=== PATIENT | female | born 1935 | race Caucasian/White ===

== ENCOUNTER 2017-05-22 12:20 | Emergency (ER) | payer MEDICARE, OTHER ==
[2017-05-22] MEDS: ONDANSETRON PF 4 MG/2 ML VIAL. IV (12:59)
[2017-05-22] MEDS: fentaNYL PF VIAL 100 MCG/2 ML VIAL IV (13:01)
[2017-05-22 13:03] LABS: BASO % 0 % (0-3); EOS % 0 % (0-3); HEMATOCRIT 39.9 % (36.0-47.0); HEMOGLOBIN 12.8 g/dL (12.0-15.5); LYMPH # 0.6 x10^3/uL (1.0-4.8); LYMPH % 7 % (24-48); MEAN CORPUSCULAR HEMOGLOBIN 26 pg (25-35); MEAN CORPUSCULAR HGB CONC 32 g/dL (31-37); MEAN CORPUSCULAR VOLUME 82 fL (79-100); MONO # 0.3 x10^3/uL (0.0-1.1); MONO % 4 % (0-9); NEUT # 8.1 x10^3uL (1.8-7.7); NEUT % 89 % (31-73); PLATELET COUNT 323 x10^3/uL (140-400); RED BLOOD COUNT 4.84 x10^6/uL (3.50-5.40); RED CELL DISTRIBUTION WIDTH 17.9 % (11.5-14.5); WHITE BLOOD COUNT 9.1 x10^3/uL (4.0-11.0)
[2017-05-22 13:04] LABS: ADD MAN DIFF? YES
[2017-05-22 13:49] LABS: % BANDS 2 % (0-9); % LYMPHS 4 % (24-48); % MONOS 1 % (0-10); % SEGS 93 % (35-66)
[2017-05-22 13:50] LABS: PLT ESTIMATE ADEQUATE (ADEQUATE)
[2017-05-22 13:59] LABS: ANION GAP 12 (6-14); BLOOD UREA NITROGEN 16 mg/dL (7-20); BUN/CREATININE RATIO 20 (6-20); CALCIUM 9.2 mg/dL (8.5-10.1); CARBON DIOXIDE 25 mmol/L (21-32); CHLORIDE 98 mmol/L (98-107); CREATININE 0.8 mg/dL (0.6-1.0); GFR 68.7; GLUCOSE 151 mg/dL (70-99); SODIUM 135 mmol/L (136-145)
[2017-05-22 14:04] LABS: ALBUMIN 3.1 g/dL (3.4-5.0); ALBUMIN/GLOBULIN RATIO 0.7 (1.0-1.7); ALK PHOS 71 U/L (46-116); ALT (SGPT) 24 U/L (14-59); AST (SGOT) 24 U/L (15-37); TOTAL BILIRUBIN 0.3 mg/dL (0.2-1.0); TOTAL PROTEIN 7.4 g/dL (6.4-8.2)
== END 2017-05-22 15:09 | disposition home or self-care (01) ==
LOC: ER 12:20
DX: S32.029A Unspecified fracture of second lumbar vertebra, initial encounter for closed fracture (principal); I10 Essential (primary) hypertension; M19.90 Unspecified osteoarthritis, unspecified site; X58.XXXA Exposure to other specified factors, initial encounter; Y93.89 Activity, other specified; Y92.89 Other specified places as the place of occurrence of the external cause; Y99.8 Other external cause status
CPT/HCPCS: 36415; 72131; 80053; 85007; 85025; 96374; 96375; 99285-25; J2405; J3010

== ENCOUNTER 2018-04-25 12:05 | Inpatient (IN) | payer MEDICARE ==
[~2018-04-25] VITALS: Ht 157.5 cm; Wt 43.1 kg
[~2018-04-25 12:05] MED LIST: AMLO2.5T3 PO; ASPI325T8 PO; CALC3.7S5 NS; CYCL10TA2 PO; HYDR-2761 PO; HYDR12.58 PO; PRED-220 PO; PRED1TAB3 PO; PRED2.5T PO; PROVENTIL HFA6.7 GM IH
[2018-04-25] MEDS ORDERED: fentaNYL PF VIAL 100 MCG/2 ML VIAL IV ONE (12:30)
[2018-04-25] MEDS ORDERED: ONDANSETRON PF 4 MG/2 ML VIAL. IV ONE (12:30)
--- NOTE | 2018-04-25 13:11 | RAD ---
Lumbar spine, 3 views, 04/25/2018: HISTORY: Severe back pain Comparison is made to a study from 04/03/2018. The bony structures are demineralized. Mild vertebral compression deformities at L2 and to a greater degree at L1 are unchanged. There is mild unchanged retrolisthesis at L1-2 and L2-3. No new fracture or subluxation is evident. There are moderate degenerative changes involving the facet joints. Moderate aortoiliac calcific plaquing is present. IMPRESSION: 1. Demineralization. 2. Moderate degenerative change. 3. Unchanged L1 and L2 vertebral compression deformities. 4. No new bony abnormality is detected. Thoracic spine, 3 views, 04/25/2018: HISTORY: Back pain Comparison is made to a study from 04/03/2018. The bony structures are demineralized. There is an old vertebral compression fracture with vertebroplasty change at T11 there is been an interval vertebroplasty at T8 8. There is a new mild vertebral compression fracture at T7. An old T3 vertebral compression fracture is not clearly delineated on the current exam due to the overlying shoulders. No other recent fracture is identified. There are scattered degenerative changes. IMPRESSION: 1. Demineralization. 2. Old vertebral compression fractures with vertebroplasty changes at T8 and T11. 3. New mild T7 vertebral compression fracture. Electronically signed by: Ramiro Nunez MD (04/25/2018 1:07 PM) [facility] [place]
--- NOTE | 2018-04-25 14:56 | PHYS DOC ---
Past Medical History Past Medical History: Arthritis, Hypertension Additional Past Medical Histor: osteoporosis, DDD Past Surgical History: Lumbar Laminectomy, Other Additional Past Surgical Histo: ANKLE ORIF, L FEMUR, L KIDNEY REMOVED Alcohol Use: Occasionally Drug Use: None Adult General Chief Complaint Chief Complaint: ABDOMINAL PAIN [facility] HPI Patient is an very unfortunate 82-year-old female with multiple thoracic and lumbar compression fractures for which she is received treatment with vertebroplasty in the past. In fact, she was just discharged here a few days ago after a T8 vertebral plasty. She returns today with new severe mid lower back pain. She denies any radicular symptoms. She denies any paresthesias. She states the pain is relatively localized to her mid back. Any bowel or bladder dysfunction. There is never been a rash in the area. Currently the pain is 10 out of 10 and made worse with any movement. She states she's been unable to keep comfortable at home. She lives with her who states that he is unable to get her up to perform activities of daily living.[] Review of Systems Review of Systems Constitutional: Denies fever or chills [] Eyes: Denies change in visual acuity, redness, or eye pain [] HENT: Denies nasal congestion or sore throat [] Respiratory: Denies cough or shortness of breath [] Cardiovascular: No additional information not addressed in HPI [] GI: Denies abdominal pain, nausea, vomiting, bloody stools or diarrhea [] : Denies dysuria or hematuria [] Musculoskeletal: Per history of present illness[] Integument: Denies rash or skin lesions [] Neurologic: Denies headache, focal weakness or sensory changes [] Endocrine: Denies polyuria or polydipsia [] All other systems were reviewed and found to be within normal limits, except as documented in this note. Current Medications Current Medications Current Medications Medications (Trade) Dose Ordered Sig/Jose Start Time Stop Time Status Last Admin Dose Admin Fentanyl Citrate (Fentanyl 2ml Vial) 25 mcg 1X ONCE 04/25/18 12:30 04/25/18 12:31 DC 04/25/18 12:58 25 MCG Ondansetron HCl (Zofran) 4 mg 1X ONCE 04/25/18 12:30 04/25/18 12:31 DC 04/25/18 12:58 4 MG Allergies Allergies Allergies Coded Allergies Type Severity Reaction Last Updated Verified No Known Drug Allergies 04/07/14 No Physical Exam Physical Exam Constitutional: Well developed, well nourished, moderate to severe distress, non -toxic appearance. [] HENT: Normocephalic, atraumatic, bilateral external ears normal, oropharynx moist, no oral exudates, nose normal. [] Eyes: PERRLA, EOMI, conjunctiva normal, no discharge. [] Neck: Normal range of motion, no tenderness, supple, no stridor. [] Cardiovascular:Heart rate regular rhythm, no murmur [] Lungs & Thorax: Bilateral breath sounds clear to auscultation [] Abdomen: Bowel sounds normal, soft, no tenderness, no masses, no pulsatile masses. [] Skin: Warm, dry, no erythema, no rash. [] Back: Very tender over the mid back. [] Extremities: No tenderness, no cyanosis, no clubbing, ROM intact, no edema. [] Neurologic: Alert and oriented X 3, normal motor function, normal sensory function, no focal deficits noted. [] Psychologic: Affect normal, judgement normal, mood normal. [] Current Patient Data Vital Signs Vital Signs Date Time Temp Pulse Resp B/P (MAP) Pulse Ox O2 Delivery O2 Flow Rate FiO2 04/25/18 13:00 88 115/63 (80) 93 Room Air 04/25/18 12:32 97.7 24 97.7 EKG EKG [] Radiology/Procedures Radiology/Procedures [] Impressions: REASON: severe back pain PROCEDURE: LUMBAR SPINE 2-3V Lumbar spine, 3 views, 04/25/2018: HISTORY: Severe back pain Comparison is made to a study from 04/03/2018. The bony structures are demineralized. Mild vertebral compression deformities at L2 and to a greater degree at L1 are unchanged. There is mild unchanged retrolisthesis at L1-2 and L2-3. No new fracture or subluxation is evident. There are moderate degenerative changes involving the facet joints. Moderate aortoiliac calcific plaquing is present. IMPRESSION: 1. Demineralization. 2. Moderate degenerative change. 3. Unchanged L1 and L2 vertebral compression deformities. 4. No new bony abnormality is detected. Thoracic spine, 3 views, 04/25/2018: HISTORY: Back pain Comparison is made to a study from 04/03/2018. The bony structures are demineralized. There is an old vertebral compression fracture with vertebroplasty change at T11 there is been an interval vertebroplasty at T8 8. There is a new mild vertebral compression fracture at T7. An old T3 vertebral compression fracture is not clearly delineated on the current exam due to the overlying shoulders. No other recent fracture is identified. There are scattered degenerative changes. IMPRESSION: 1. Demineralization. 2. Old vertebral compression fractures with vertebroplasty changes at T8 and T11. 3. New mild T7 vertebral compression fracture. Course & Med Decision Making Course & Med Decision Making Pertinent Labs and Imaging studies reviewed. (See chart for details) [ED course: Evaluation reveals a very frail 82-year-old female who is in moderate to severe pain secondary to back issues. She was given 25 g of fentanyl and Zofran during her stay in the department which did help alleviate her symptoms for a short period of time. During her stay in the department we were really unable to get her up and around secondary to the severity of her pain. I spoke with Dr. Man who agreed to keep her in the hospital for pain control and possible placement. She will also need orthopedic/neurosurgery consult for another vertebroplasty. She'll also need an MRI to evaluate the extent of her new compression fracture.] Dragon Disclaimer Dragon Disclaimer This electronic medical record was generated, in whole or in part, using a voice recognition dictation system. Departure Departure Impression: Primary Impression: Compression fracture of body of thoracic vertebra Disposition: ADMITTED INPATIENT Admitting Physician: Darryl Man Condition: STABLE Referrals: DARRYL MAN MD (PCP) BECKI HERNÁNDEZ DO Apr 25, 2018 14:56
[2018-04-25] MEDS ORDERED: NON FORMULARY ITEM (Albuterol Sulfate (Proventil Hfa Inhaler) 1 PUFF) IH PRN (16:45)
[2018-04-25] MEDS ORDERED: NICOTINE 21MG PATCH. TD PRN (17:00)
[2018-04-25] MEDS ORDERED: ALBUTEROL SULFATE 2.5 MG/3 ML NEBU. NEB PRN (17:00)
[2018-04-25] MEDS ORDERED: predniSONE 10 MG TABLET PO SCH (17:00)
[2018-04-25] MEDS: HYDROcodone/APAP 5/325MG 1 TAB TABLET PO PRN ×2 (17:13→23:10)
[2018-04-25] MEDS: POLYETHYLENE GLYCOL 3350 17 GM PACKET. PO SCH (18:00)
[2018-04-25] MEDS ORDERED: ASPIRIN 325 MG TABLET PO SCH (18:00)
[2018-04-25] MEDS ORDERED: HYDROcodone/APAP 5/325MG 1 TAB TABLET PO PRN (19:00)
[2018-04-25] MEDS ORDERED: IBUPROFEN 400 MG TABLET. PO PRN (19:00)
[2018-04-25 19:15] VITALS: BP 102/62
[2018-04-25] MEDS ORDERED: CYCLOBENZAPRINE 10 MG TABLET. PO PRN (21:00)
[2018-04-25 22:55] VITALS: BP 106/74
[2018-04-26] VITALS (11 sets, daily range): BP systolic 92–137; BP diastolic 42–73
--- NOTE | 2018-04-26 08:17 | PDOC ---
Provider Note Provider Note [id number] HUEY RODRIGUEZ MD Apr 26, 2018 08:17
[2018-04-26] MEDS ORDERED: ZOLEDRONICACID 5mg/100mlPREMIX 100 ML IV ONE (08:30)
--- NOTE | 2018-04-26 08:32 | HP ---
ADMIT DATE: 04/25/2018 CHIEF COMPLAINT: Recurrent back pain. HISTORY OF PRESENT ILLNESS: An 82-year-old white female with severe osteoporosis secondary to chronic tobacco use and long-standing COPD, has had a recent T8 vertebroplasty and has had L1 and L2 vertebroplasties in the past. She came in with increasing low back pain and was felt to have a new T7 fracture on x-ray. She has taken Fosamax and Reclast in the past, and takes vitamin D at home already. She recalls no recent injury or fall, and has no neurologic symptoms at this time. PAST MEDICAL HISTORY: Well documented in the old record. SOCIAL HISTORY: Still smokes at home lightly. , not physically active due to her disability. FAMILY HISTORY: Unremarkable. REVIEW OF SYSTEMS: No other complaints. OBJECTIVE: ENT: Unremarkable. NECK: No masses, nodes or thyroid enlargement. LUNGS: Clear, decreased breath sounds. CARDIOVASCULAR: Regular rate. No murmur. BACK: Tender to percussion over the mid thoracic spine, no deformities seen. ABDOMEN: Benign. EXTREMITIES: Unremarkable. Good pedal and radial pulses, 2+ clubbing. NEUROLOGIC AND PHYSIOLOGIC: No lower motor or upper motor neuron signs present in the lower body. ASSESSMENT: New thoracic pain secondary to new T7 fracture with ongoing severe osteoporosis and prior fractures. She has underlying chronic obstructive pulmonary disease and malnutrition as well. PLAN: Repeat the MRI of the thoracic spine and IR consult to consider vertebroplasty again. We will resume Miacalcin and use ibuprofen and opioid for pain control and screen for rehab as her is not capable of caring for her in the home. HUEY RODRIGUEZ MD DR: HAVEN/susan JOB#: [id number] / [id number]
[2018-04-26] MEDS ORDERED: CALCITONIN,SALMON NASAL 200 UNITS/SPRAY 3.7ML BOTTLE. NS SCH ×2 (09:00)
[2018-04-26] MEDS: POLYETHYLENE GLYCOL 3350 17 GM PACKET. PO SCH (09:00)
[2018-04-26] MEDS: CHOLECALCIFEROL (VITAMIN D3) 1,000 UNIT TABLET PO SCH (09:00)
[2018-04-26] MEDS ORDERED: fentaNYL 25MCG/HR PATCH 1 PATCH PATCH.TD72 TD SCH (09:00)
[2018-04-26] MEDS: predniSONE 5 MG TABLET PO SCH (10:37)
[2018-04-26] MEDS: HYDROcodone/APAP 5/325MG 1 TAB TABLET PO PRN (10:37)
--- NOTE | 2018-04-26 12:37 | RAD ---
MRI of the thoracic spine without contrast 04/26/2018 CLINICAL HISTORY: Worsening chronic mid back pain. TECHNIQUE: Unenhanced T1-weighted, T2-weighted and inversion recovery sagittal and T1-weighted and T2-weighted axial images of the thoracic spine were obtained. FINDINGS: Comparison is made to radiographs of the thoracic spine dated 04/25/2018. Mild S-shaped curvature of the thoracolumbar spine is seen. There is accentuation of the normal thoracic kyphosis. Old compression fractures are seen involving the T3, T11 and L1 vertebral bodies. The patient is post kyphoplasty type procedure for a recent compression fracture involving the T8 vertebral body. No retropulsion of bone fragments into the central spinal canal is seen. An acute compression fracture is seen involving the inferior aspect of the T7 vertebral body. This vertebral body has lost approximately 20 percent of its normal height. No retropulsion of bone fragments into the central spinal canal is seen. No additional acute compression fracture of the thoracic vertebrae is seen. Degenerative signal changes are seen involving all of the disks of the thoracic spine. Degenerative signal changes within the marrow surrounding these discs. No area of abnormal signal intensity is seen involving the thoracic spinal cord. Degenerative changes are seen throughout the thoracic disc spaces. These consist of minimal to mild generalized disc bulges and degenerative changes involving the facet joints. These findings do not result in definite areas of significant central spinal canal or neural foraminal stenosis. IMPRESSION: Acute compression fracture is seen involving the T7 vertebral body. No retropulsion of bone fragments into the central spinal canal is seen. Electronically signed by: Ramses Callejas MD (04/26/2018 12:33 PM) [facility]
[2018-04-26] MEDS ORDERED: fentaNYL PF VIAL 100 MCG/2 ML VIAL ONE (14:15)
[2018-04-26] MEDS ORDERED: MIDAZOLAM HCL/PF 2 MG/2 ML VIAL. ONE (14:15)
[2018-04-26] MEDS ORDERED: LIDOCAINE WITH 8.4% SOD BICARB 3 ML DISP.SYRIN. ONE (14:20)
[2018-04-26] MEDS ORDERED: IOHEXOL 240 MG/ML 50ML VIAL. ONE (14:20)
[2018-04-26] MEDS ORDERED: LIDOCAINE WITH 8.4% SOD BICARB 3 ML DISP.SYRIN. IJ ONE (15:30)
[2018-04-26] MEDS ORDERED: MIDAZOLAM HCL/PF 2 MG/2 ML VIAL. IV ONE (15:30)
[2018-04-26] MEDS ORDERED: fentaNYL PF VIAL 100 MCG/2 ML VIAL IV ONE (15:30)
--- NOTE | 2018-04-26 16:53 | RAD ---
04/26/2018 Fluoroscopically guided T7 vertebroplasty Indication:Pathologic T7 compression fracture, secondary to severe bone demineralization. Patient with severe pain refractory to conservative treatment measures, limiting activities of daily living Fluoroscopy time: 8.9 min Dose area product: 149.2 uGym2 Moderate sedation: The patient was appropriately monitored by a qualified independent observer throughout the course of the moderate sedation. [id number] sedation time:45 minutes Consent: The risks and benefits of the procedure were discussed with the patient. Informed consent was obtained. The patient was brought to the fluoroscopy suite and placed in the prone position. A timeout procedure was performed. Preprocedural antibiotics were administered. Procedure: The overlying skin was prepped and draped in the usual sterile fashion. All elements of maximal sterile barrier technique including the use of a cap, mask, sterile gown, sterile gloves, large sterile sheet, appropriate hand hygiene, and 2% chlorhexidine for cutaneous antisepsis (or acceptable alternative antiseptic per current guidelines) were followed for this procedure. Using a left transpedicular approach, and direct fluoroscopic guidance, a trocar needle was advanced to the posterior third of the targeted vertebral body. A curved cement delivery needle was advanced into the contralateral vertebral body. Contrast opacified polymethylmethacrylate was then very slowly and carefully introduced through the vertebral augmentation needle, using strict fluoroscopic control. Once adequate filling had been achieved the needles were removed and manual pressure was held. No significant extravasation or complication was identified. Sterile dressing was applied. Patient tolerated the procedure well, without apparent complication. Impression: Fluoroscopically guided vertebroplasty T7
[2018-04-27 03:00] VITALS: BP 124/69
[2018-04-27 07:00] VITALS: BP 111/69
[2018-04-27] MEDS: CHOLECALCIFEROL (VITAMIN D3) 1,000 UNIT TABLET PO SCH (09:47)
[2018-04-27] MEDS: POLYETHYLENE GLYCOL 3350 17 GM PACKET. PO SCH (09:47)
[2018-04-27] MEDS: predniSONE 5 MG TABLET PO SCH (09:47)
[2018-04-27] MEDS ORDERED: CALCITONIN NASAL SPRAY INH SCH ×2 (10:30)
[2018-04-27 12:00] VITALS: BP 104/63
--- NOTE | 2018-04-27 12:30 | PDOC ---
Provider Note Provider Note [id number] HUEY RODRIGUEZ MD Apr 27, 2018 12:30
--- NOTE | 2018-04-27 13:10 | PN ---
DATE: 04/27/2018 SUBJECTIVE: The patient is in no distress, sitting up now with stable vitals. She had the vertebroplasty of the T7 fracture, which was confirmed by MRI. Physical exam was unchanged and she is alert and responsive. We discussed whether she wanted to consider going home versus going to rehab and she and her were going to talk about it today and see how she feels. We will re-evaluate tomorrow as she likely will not go home today. HUEY RODRIGUEZ MD DR: HAVNE/susan JOB#: [id number] / [id number]
[2018-04-27 16:00] VITALS: BP 118/74
[2018-04-27 19:00] VITALS: BP 109/62
[2018-04-27] MEDS ORDERED: ALBUTEROL SULFATE 2.5 MG/3 ML NEBU. NEB PRN (19:30)
[2018-04-27 23:00] VITALS: BP 109/65
[2018-04-28 03:00] VITALS: BP 134/78
[2018-04-28 07:00] VITALS: BP 113/72
[2018-04-28] MEDS ORDERED: CALCITONIN,SALMON NASAL 200 UNITS/SPRAY 3.7ML BOTTLE. NS SCH (09:00)
--- NOTE | 2018-04-28 09:04 | DISCH ---
DISCHARGE INSTRUCTIONS Condition on Discharge Condition on Discharge: Stable Activity After Discharge Activity Instructions for Disc: Activity as tolerated Bathing Instructions: No Tub Bath until see Lifting Instructions after Dis: No heavy lifting, No pulling or pushing Exercise Instruction after Dis: Progress as tolerated Driving Instructions after Dis: Do not drive today Weight Bearing Status after Di: As tolerated Diet after Discharge Diet after Discharge: Regular Diet Texture: Regular Liquid Texture: Thin Liquid Swallowing Supervision: None needed Wound Incision Care Wound/Incision Care: Ice to area for comfort Follow-Up Follow up with: dr buenrostro 1 w Treatment/Equipment after DC Adaptive Equipment Issued: None Comment: upper back HUEY RODRIGUEZ MD Apr 28, 2018 09:04
--- NOTE | 2018-04-28 09:07 | PDOC ---
Provider Note Provider Note [id number] HUEY RODRIGUEZ MD Apr 28, 2018 09:07
[2018-04-28] MEDS: POLYETHYLENE GLYCOL 3350 17 GM PACKET. PO SCH (09:22)
[2018-04-28] MEDS: CHOLECALCIFEROL (VITAMIN D3) 1,000 UNIT TABLET PO SCH (09:23)
[2018-04-28] MEDS: predniSONE 5 MG TABLET PO SCH (09:23)
--- NOTE | 2018-04-28 10:15 | DS ---
DATE OF DISCHARGE: 04/25/2018 HOSPITAL SUMMARY: The patient with chronic osteoporosis, came back in with increasing pain and was found to have a new compression fracture of T7 just above the T8 vertebroplasty she had had done 2 weeks ago. MRI confirmed the new fracture without retropulsion into the central spinal canal. Laboratory studies were unremarkable with a sed rate of 14. She underwent vertebroplasty by Interventional Radiology and she states she has had good pain improvement. She and her declined to go to rehab and she wishes to go home at this time. FINAL DIAGNOSIS: Back pain secondary to compression fracture of T7 body. OPERATIONS AND PROCEDURES: T7 vertebroplasty. COMPLICATIONS: None. CONSULTATIONS: Interventional Radiology. DISPOSITION: Home meds remain the same with ibuprofen and/or oxycodone for pain. Prednisone dose for her PMR was reduced to 5 mg to try to lessen the impact on her osteoporosis. She takes daily vitamin D and we attempted to prescribe Reclast for her in the hospital, but reimbursement was not available so we will consider this as an outpatient at 5 mg once daily as she is not able to tolerate Evista or Fosamax. HUEY RODRIGUEZ MD DR: HAVEN/susan JOB#: [id number] / [id number]
== END 2018-04-28 12:20 | disposition home or self-care (01) | DRG 516 ==
LOC: ER 12:05 → 4 NORTH 14:48 → ER 15:46
PROVIDERS: ADMIT Family Medicine; ATTEND Family Medicine
PROC: 0PU43JZ Supplement Thoracic Vertebra with Synthetic Substitute, Percutaneous Approach (ICD-10-PCS; principal; 2018-04-26)
DX: M80.88XA Other osteoporosis with current pathological fracture, vertebra(e), initial encounter for fracture (principal); E46 Unspecified protein-calorie malnutrition; Z68.1 Body mass index [BMI] 19.9 or less, adult; I10 Essential (primary) hypertension; J44.9 Chronic obstructive pulmonary disease, unspecified; M19.90 Unspecified osteoarthritis, unspecified site; R54 Age-related physical debility; F17.200 Nicotine dependence, unspecified, uncomplicated; Z79.899 Other long term (current) drug therapy; Z90.5 Acquired absence of kidney; Z87.81 Personal history of (healed) traumatic fracture
CPT/HCPCS: 22510; 36415; 72072; 72100; 72146; 84443; 85651; 94640; 94760; 96374; 99152; 99153; C1758; J0630; J0690; J2250; J2405; J3010; J7512; J7613; 99285-25

== ENCOUNTER 2018-06-15 11:20 | Inpatient (IN) | payer MEDICARE, OTHER ==
[~2018-06-15] VITALS: Ht 157.5 cm; Wt 38.7 kg
[~2018-06-15 11:20] MED LIST changes: +ALBU2.5V8 IH; -AMLO2.5T3 PO; +AMLO2.5T5 PO; -PROVENTIL HFA6.7 GM IH
--- NOTE | 2018-06-15 11:54 | PHYS DOC ---
Past Medical History Past Medical History: Arthritis, Hypertension Additional Past Medical Histor: osteoporosis, DDD Past Surgical History: Lumbar Laminectomy, Other Additional Past Surgical Histo: ANKLE ORIF, L FEMUR, L KIDNEY REMOVED Alcohol Use: Occasionally Drug Use: None Adult General Chief Complaint Chief Complaint: SHORTNESS OF BREATH [facility] HPI Patient is an 82-year-old female who presents with complaint of shortness of breath and low oxygen saturation. shelter contacted nursing staff at this facility and indicated that patient was placed on oxygen due to low oxygen saturation. Patient reportedly has history of pleural effusion and her primary provider, Dr. Huey Rodriguez, requested the patient be sent over for evaluation to see if she needs fluid drawn off of the effusion. Patient indicates that her shortness of breath is worsened when she lies down flat. Review of Systems Review of Systems Constitutional: Denies fever or chills [] Respiratory: Complains of cough and shortness of breath [] Cardiovascular: No additional information not addressed in HPI [] GI: Denies abdominal pain, nausea, vomiting, bloody stools or diarrhea [] Integument: Denies rash or skin lesions [] Neurologic: Denies headache, focal weakness or sensory changes [] All other systems were reviewed and found to be within normal limits, except as documented in this note. Current Medications Current Medications Current Medications Medications (Trade) Dose Ordered Sig/Jose Start Time Stop Time Status Last Admin Dose Admin Fentanyl Citrate (Fentanyl 2ml Vial) 25 mcg 1X ONCE 06/15/18 13:00 06/15/18 13:01 DC 06/15/18 12:55 25 MCG Ondansetron HCl (Zofran) 4 mg 1X ONCE 06/15/18 13:00 06/15/18 13:01 DC 06/15/18 12:54 4 MG Allergies Allergies Allergies Coded Allergies Type Severity Reaction Last Updated Verified No Known Drug Allergies 05/17/18 No Physical Exam Physical Exam Constitutional: Well developed, well nourished, no acute distress, non-toxic appearance. [] HENT: Normocephalic, atraumatic, bilateral external ears normal, oropharynx moist, no oral exudates, nose normal. [] Eyes: PERRLA, EOMI, conjunctiva normal, no discharge. [] Neck: Normal range of motion, no tenderness, supple, no stridor. [] Cardiovascular: Regular rate and rhythm [] Lungs & Thorax: Diminished breath sounds are noted bilaterally, fine rails are noted in the left lung base to auscultation [] Abdomen: Bowel sounds normal, soft, no tenderness. [] Skin: Warm, dry, no erythema, no rash. [] Extremities: No tenderness, no cyanosis, no clubbing, ROM intact. [] Neurologic: Awake and alert, no focal deficits noted. [] Current Patient Data Vital Signs Vital Signs Date Time Temp Pulse Resp B/P (MAP) Pulse Ox O2 Delivery O2 Flow Rate FiO2 06/15/18 12:55 14 96 06/15/18 11:20 98.1 94 138/63 (88) Nasal Cannula 2.0 98.1 Lab Values Laboratory Tests Test 06/15/18 12:26 White Blood Count 10.1 x10^3/uL (4.0-11.0) Red Blood Count 4.02 x10^6/uL (3.50-5.40) Hemoglobin 11.4 g/dL (12.0-15.5) L Hematocrit 34.9 % (36.0-47.0) L Mean Corpuscular Volume 87 fL (79-100) Mean Corpuscular Hemoglobin 28 pg (25-35) Mean Corpuscular Hemoglobin Concent 33 g/dL (31-37) Red Cell Distribution Width 17.1 % (11.5-14.5) H Platelet Count 353 x10^3/uL (140-400) Neutrophils (%) (Auto) 76 % (31-73) H Lymphocytes (%) (Auto) 12 % (24-48) L Monocytes (%) (Auto) 10 % (0-9) H Eosinophils (%) (Auto) 1 % (0-3) Basophils (%) (Auto) 1 % (0-3) Neutrophils # (Auto) 7.7 x10^3uL (1.8-7.7) Lymphocytes # (Auto) 1.2 x10^3/uL (1.0-4.8) Monocytes # (Auto) 1.0 x10^3/uL (0.0-1.1) Eosinophils # (Auto) 0.1 x10^3/uL (0.0-0.7) Basophils # (Auto) 0.1 x10^3/uL (0.0-0.2) Sodium Level 137 mmol/L (136-145) Potassium Level 4.0 mmol/L (3.5-5.1) Chloride Level 100 mmol/L (98-107) Carbon Dioxide Level 30 mmol/L (21-32) Anion Gap 7 (6-14) Blood Urea Nitrogen 17 mg/dL (7-20) Creatinine 0.7 mg/dL (0.6-1.0) Estimated GFR (Cockcroft-Gault) 79.9 BUN/Creatinine Ratio 24 (6-20) H Glucose Level 96 mg/dL (70-99) Calcium Level 9.4 mg/dL (8.5-10.1) Total Bilirubin 0.4 mg/dL (0.2-1.0) Aspartate Amino Transferase (AST) 21 U/L (15-37) Alanine Aminotransferase (ALT) 16 U/L (14-59) Alkaline Phosphatase 84 U/L (46-116) Troponin I Quantitative < 0.017 ng/mL (0.000-0.055) PN-Rza-Z-Type Natriuretic Peptide 215 pg/mL (0-449) Total Protein 7.8 g/dL (6.4-8.2) Albumin 2.8 g/dL (3.4-5.0) L Albumin/Globulin Ratio 0.6 (1.0-1.7) L Laboratory Tests 06/15/18 12:26 Laboratory Tests 06/15/18 12:26 EKG EKG [] Interpretation Time: EKG demonstrates normal sinus rhythm with rate of 93. Radiology/Procedures Radiology/Procedures [] Impressions: PROCEDURE: PORTABLE CHEST 1V PORTABLE CHEST 1V Clinical indications: chest pain COMPARISON: June 13, 2018. FINDINGS: Diffuse mild bilateral interstitial lung infiltrates are again seen. Slight increase within the left upper lobe and the right upper lobe. This may indicate mild acute interstitial pulmonary edema. Small bilateral pleural effusions are still evident. No pneumothorax is seen. Heart size and mediastinum are stable. IMPRESSION: Mild increase in interstitial pulmonary edema. Electronically signed by: Phil Castillo MD (06/15/2018 12:05 PM) [facility] Course & Med Decision Making Course & Med Decision Making Pertinent Labs and Imaging studies reviewed. (See chart for details) [] Dragon Disclaimer Dragon Disclaimer This electronic medical record was generated, in whole or in part, using a voice recognition dictation system. Departure Departure Impression: Primary Impression: COPD with acute exacerbation Additional Impression: Dehydration Disposition: 09 ADMITTED INPATIENT Admitting Physician: Yvette Herrera Condition: IMPROVED Referrals: HUEY RODRIGUEZ MD (PCP) Problem Qualifiers JAYSON ARIAS Jr. DO Jun 15, 2018 11:54
--- NOTE | 2018-06-15 12:09 | RAD ---
PORTABLE CHEST 1V Clinical indications: chest pain COMPARISON: June 13, 2018. FINDINGS: Diffuse mild bilateral interstitial lung infiltrates are again seen. Slight increase within the left upper lobe and the right upper lobe. This may indicate mild acute interstitial pulmonary edema. Small bilateral pleural effusions are still evident. No pneumothorax is seen. Heart size and mediastinum are stable. IMPRESSION: Mild increase in interstitial pulmonary edema. Electronically signed by: Phil Castillo MD (06/15/2018 12:05 PM) [facility]
[2018-06-15] MEDS ORDERED: fentaNYL PF VIAL 100 MCG/2 ML VIAL IV ONE (13:00)
[2018-06-15] MEDS ORDERED: ONDANSETRON PF 4 MG/2 ML VIAL. IV ONE (13:00)
[2018-06-15 13:03] LABS: BASO # 0.1 x10^3/uL (0.0-0.2); BASO % 1 % (0-3); EOS # 0.1 x10^3/uL (0.0-0.7); EOS % 1 % (0-3); HEMATOCRIT 34.9 % (36.0-47.0); HEMOGLOBIN 11.4 g/dL (12.0-15.5); LYMPH # 1.2 x10^3/uL (1.0-4.8); LYMPH % 12 % (24-48); MEAN CORPUSCULAR HEMOGLOBIN 28 pg (25-35); MEAN CORPUSCULAR HGB CONC 33 g/dL (31-37); MEAN CORPUSCULAR VOLUME 87 fL (79-100); MONO % 10 % (0-9); NEUT # 7.7 x10^3uL (1.8-7.7); NEUT % 76 % (31-73); PLATELET COUNT 353 x10^3/uL (140-400); RED BLOOD COUNT 4.02 x10^6/uL (3.50-5.40); RED CELL DISTRIBUTION WIDTH 17.1 % (11.5-14.5); WHITE BLOOD COUNT 10.1 x10^3/uL (4.0-11.0)
[2018-06-15 13:14] LABS: CALCIUM 9.4 mg/dL (8.5-10.1); CREATININE 0.7 mg/dL (0.6-1.0); GFR 79.9
[2018-06-15 13:27] LABS: ALBUMIN 2.8 g/dL (3.4-5.0); ALBUMIN/GLOBULIN RATIO 0.6 (1.0-1.7); TOTAL BILIRUBIN 0.4 mg/dL (0.2-1.0); TOTAL PROTEIN 7.8 g/dL (6.4-8.2)
[2018-06-15] MEDS ORDERED: IV NORMAL SALINE 1000ML BAG 1,000 ML IV SCH (14:28)
[2018-06-15] MEDS ORDERED: ACETAMINOPHEN 325 MG TABLET. PO PRN (14:30)
[2018-06-15] MEDS ORDERED: ONDANSETRON PF 4 MG/2 ML VIAL. IV PRN (14:30)
[2018-06-15] MEDS ORDERED: methylPREDNISolone SOD SUCC PF 125 MG/2 ML VIAL. IV ONE (14:30)
[2018-06-15] MEDS: MORPHINE SULFATE 4 MG/ML VIAL. IV PRN ×2 (14:55→18:10)
[2018-06-15] MEDS: IPRATRPIUM/ALBUTEROL 0.5/2.5MG 3 ML NEBU. NEB SCH ×3 (15:08→20:00)
[2018-06-15 15:20] VITALS: BP 119/60
[2018-06-15] MEDS ORDERED: ALBUTEROL SULFATE 2.5 MG/3 ML NEBU. NEB PRN (16:45)
[2018-06-15] MEDS ORDERED: ASPI325T8 PO (17:17)
[2018-06-15] MEDS ORDERED: IBUP-1007 PO (17:17)
[2018-06-15] MEDS ORDERED: PRED5TAB PO (17:17)
[2018-06-15] MEDS ORDERED: FENT1PAT15 TD (17:17)
--- NOTE | 2018-06-15 17:50 | NUR ---
This RN called a Rapid response because pt c/o chest pain. When asked to describe it, stated it feels "sharp", she had "never had it before today." ICU charge nurse, housekeeping supervisor, and RT responded to page. Stat 12 lead EKG and stat troponin ordered. VS upon calling rapid, BP 148/110, HR 101, oxygen 91% on 4L NC. Pt predominant mouth breather, and when asked if she is feeling short of breath, will state no. EKG showed SR, and vitals during rapid BP 121/73, HR 95, oxygen 92%. Morphine 2 mg given for pain. Notified Dr. Herrera of these changes, received orders for a pulmonary consult. Will continue to monitor.
--- NOTE | 2018-06-15 18:07 | EKG ---
[facility] [address] [place] [address] Test Date: 2018-06-15 Test Time: 18:03:05 Pat Name: DEVIKA NOLASCO Department: Room: [facility] Gender: F Spread Cutter: : 1935 Requested By: JAYSON ARIAS Order Number: [id number] Reading MD: Jaden Clancy Measurements Intervals [place] Rate: 96 P: 41 OK: 148 QRS: -11 QRSD: 72 T: 42 QT: 340 QTc: 430 Interpretive Statements SINUS RHYTHM LEFTWARD AXIS QRS(T) CONTOUR ABNORMALITY CONSISTENT WITH INFERIOR INFARCT PROBABLY OLD ABNORMAL ECG Electronically Signed On 06-20-2018 9:58:38 RAT BREEDER by Jaden Clancy
--- NOTE | 2018-06-15 18:23 | NUR ---
Responded to rapid in room 664, patient was having chest pain, but was pain free when I arrived, EKG ordered that was negative, patient was just admitted from ER where trop was negative,patient given morphine IVP, VS stable. Patient remains on unit. Addendum: 06/15/18 at 1826 by LINA SCHUSTER RN Amended: Links added.
[2018-06-15 19:35] VITALS: BP 122/66
[2018-06-15 23:50] VITALS: BP 115/62
[2018-06-16 03:55] VITALS: BP 108/56
[2018-06-16] MEDS: IBUPROFEN 200 MG TABLET. PO PRN (06:23)
[2018-06-16] MEDS: IPRATRPIUM/ALBUTEROL 0.5/2.5MG 3 ML NEBU. NEB SCH ×5 (07:37→20:47)
[2018-06-16 07:53] VITALS: BP 149/87
[2018-06-16] MEDS ORDERED: ASPIRIN 325 MG TABLET PO SCH (08:00)
[2018-06-16] MEDS ORDERED: predniSONE 5 MG TABLET PO SCH (09:00)
--- NOTE | 2018-06-16 09:56 | PDOC ---
Provider Note Provider Note [id number] acute on chronic resp fail acute bronchitis ae of copd see orders. ELEUTERIO BERNARD MD Jun 16, 2018 09:56
[2018-06-16] MEDS: cefTRIAXone IV Push 1 GM VIAL. IVP SCH (10:14)
--- NOTE | 2018-06-16 10:42 | EKG ---
[facility] [address] [place] [address] Test Date: 2018-06-15 Test Time: 11:37:51 Pat Name: DEVIKA NOLASCO Department: Room: [facility] Gender: F Rn Field: : 1935 Requested By: SHARON REA Order Number: [id number] Reading MD: Jaden Clancy Measurements Intervals [place] Rate: 95 P: 56 WI: 150 QRS: -8 QRSD: 70 T: 68 QT: 336 QTc: 425 Interpretive Statements SINUS RHYTHM LEFTWARD AXIS Electronically Signed On 06-20-2018 9:54:47 SORTING AND FOLDING SUPERVISOR by Jaden Clancy
--- NOTE | 2018-06-16 10:44 | EKG ---
[facility] [address] [place] [address] Test Date: 2018-06-15 Test Time: 11:40:33 Pat Name: DEVIKA NOLASCO Department: Room: [facility] Gender: F School Inspector: : 1935 Requested By: SHARON REA Order Number: [id number] Reading MD: Jaden Clancy Measurements Intervals [place] Rate: 93 P: 51 IA: 140 QRS: -9 QRSD: 70 T: 61 QT: 338 QTc: 422 Interpretive Statements SINUS RHYTHM LEFTWARD AXIS QRS(T) CONTOUR ABNORMALITY CONSISTENT WITH INFERIOR INFARCT PROBABLY OLD ABNORMAL ECG Electronically Signed On 06-20-2018 9:54:56 LITHARGE SUPERVISOR by Jaden Clancy
--- NOTE | 2018-06-16 11:13 | CONS ---
DATE OF CONSULTATION: 06/16/2018 REASON FOR CONSULTATION: I was asked to see this 82-year-old lady for acute on chronic respiratory failure, acute exacerbation of COPD. HISTORY OF PRESENT ILLNESS: She has history of more than [id number] smoking, stopped smoking 2 months ago. She is on oxygen. She is in a [place] [facility]. She has not felt good for the past 2-3 days, has felt weak. She has had more cough and shortness of breath. PAST MEDICAL HISTORY: Chronic respiratory failure, COPD, arthritis, hypertension. ALLERGIES: No known drug allergies. MEDICATIONS: Currently, she is on prednisone 5 mg daily, fentanyl, aspirin, DuoNeb. SOCIAL HISTORY: History of more than [id number]-qlky smoking, stopped smoking 2 months ago. FAMILY HISTORY: Hypertension. REVIEW OF SYSTEMS: As mentioned as above, other systems otherwise negative. PHYSICAL EXAMINATION: GENERAL: This is a malnourished lady. VITAL SIGNS: O2 saturation on 4 liters of oxygen 92%, respiratory rate 22, heart rate 94, blood pressure 149/87, temperature 98.5. HEENT: Normocephalic, atraumatic. Pupils equal, round, reactive to light. Throat is clear. Nose is clear. NECK: There is no JVD, lymphadenopathy or thyromegaly. CARDIOVASCULAR: Regular rate and rhythm. PMI is nondisplaced. CHEST: On inspection she appears tachypneic. She has end expiratory wheezing, diminished breath sounds. Percussion is within normal limits. ABDOMEN: Soft. Bowel sounds are good. There is no mass. EXTREMITIES: There is no edema. LYMPHATICS: There is no lymphadenopathy. NEUROLOGIC: Alert and oriented. SKIN: Chronic changes. LABORATORY DATA: I reviewed the following lab data: Chest x-ray showed increased interstitial marking. Sodium 137, potassium 4, chloride 100, CO2 of 30, BUN 17, creatinine 0.7. Troponin less than 0.01. BNP 215. WBC 10.1, hemoglobin 11.4, platelets 353. IMPRESSION: 1. Acute on chronic respiratory failure secondary to acute exacerbation of chronic obstructive pulmonary disease, acute bronchitis versus others. 2. Acute exacerbation of chronic obstructive pulmonary disease. 3. Acute bronchitis. 4. Protein calorie malnutrition. 5. Ex-smoker. 6. Hypertension. PLAN AND RECOMMENDATIONS: 1. Titrate FiO2 to keep O2 saturation 92%. 2. Bronchodilator. 3. Start Solu-Medrol 40 mg IV every 12. 4. Start Rocephin. 5. Monitor respiratory status very closely. 6. She is DNR. 7. The findings and recommendations were discussed with the patient and her , they understood and agreed to proceed with the plan. I have answered all of their questions. Thank you very much for allowing me to participate in care of this very nice lady. ELEUTERIO BERNARD M.D. DR: SATURNINO/susan JOB#: [id number] / [id number]
[2018-06-16 11:30] VITALS: BP 133/83
--- NOTE | 2018-06-16 12:09 | HP ---
ADMIT DATE: 06/15/2018 CHIEF COMPLAINT AND HISTORY OF PRESENT ILLNESS: This 82-year-old white female, patient of Dr. Huey Man, is known to me from prior hospitalization. She has [facility] following a recent hospitalization. Over the last couple of days, she has become weaker, more short of breath, was brought to the Emergency Room where she was admitted for an exacerbation of COPD with acute on chronic respiratory failure. PAST MEDICAL HISTORY: Remarkable for severe COPD, chronic respiratory failure, arthritis, hypertension. MEDICATIONS: Brought with the patient, listed on the computer and been addressed. ALLERGIES: She has no known drug allergies. SOCIAL HISTORY: She has greater than [id number] smoking history, stopping some 2 months or so ago. Does not abuse alcohol or drugs. , lives at home with her . FAMILY HISTORY: Positive for hypertension. REVIEW OF SYSTEMS: Remarkable for increased cough, increased shortness of breath, just overall extreme weakness, particularly on the day of admission with her , saying that she does seem better today. PHYSICAL EXAMINATION: GENERAL: She is a thin, cachectic-appearing white female who appears somewhat short of breath even at rest with some pursed lip breathing and using accessory muscles of respiration. VITAL SIGNS: Stable. She is afebrile. Her respiratory rate is 22. O2 is present at 4 liters per nasal cannula. HEAD, EYES, EARS, NOSE AND THROAT: Unremarkable. NECK: Supple, without lymphadenopathy or thyromegaly. CHEST: Reveals markedly decreased breath sounds. She is tachypneic. There is some end expiratory wheezing. ABDOMEN: Soft, nontender, without hepatosplenomegaly or mass. EXTREMITIES: Without cyanosis, clubbing, edema. NEUROLOGIC: She is intact. Chest x-ray on admission shows increased interstitial markings. Troponin and BNP are normal on admission. Albumin is decreased at 2.8 on admission. CBC is essentially unremarkable. IMPRESSION: 1. Acute on chronic respiratory failure due to exacerbation of chronic obstructive pulmonary disease with likely bronchitis. 2. Protein calorie malnutrition. 3. Hypertension. PLAN: Continue O2 at this point in time. Pulmonary has added steroids to her regimen. She is on antibiotic, therapy will be resumed and the patient will be monitored, managed and treated appropriately. NYDIA LAU MD DR: BERNARD/susan JOB#: [id number] / [id number] HUEY Leonard
[2018-06-16 15:18] VITALS: BP 113/67
[2018-06-16 19:45] VITALS: BP 133/73
[2018-06-16] MEDS: methylPREDNISolone SOD SUCC PF 40 MG/ML VIAL. IV SCH (21:22)
[2018-06-16] MEDS: LACTOBACILLUS RHAMNOSUS GG 1 CAPSULE. PO SCH (21:22)
[2018-06-16 23:22] VITALS: BP 150/79
[2018-06-17 03:55] VITALS: BP 165/86
[2018-06-17] MEDS: IBUPROFEN 200 MG TABLET. PO PRN (06:35)
--- NOTE | 2018-06-17 06:59 | NUR ---
A/O x 4. On O2 2L NC. C/o arthritis pain in AM, pain med given per order. No apparent distress noted at this time. Bed alarm on. Fall precautions maintained. Call light within reach. Will continue to monitor.
[2018-06-17 07:36] VITALS: BP 148/90
--- NOTE | 2018-06-17 07:42 | PDOC ---
Provider Note Provider Note vss, no temp- no dyspnea at rest- labs ok- cxr clear re pneu- on rocep/ steroids, nebs- comfort care as dnr- cont same for now HUEY RODRIGUEZ MD Jun 17, 2018 07:42
[2018-06-17] MEDS ORDERED: IBUPROFEN 200 MG TABLET. PO PRN (07:45)
[2018-06-17] MEDS: IPRATRPIUM/ALBUTEROL 0.5/2.5MG 3 ML NEBU. NEB SCH ×4 (08:05→20:34)
[2018-06-17] MEDS ORDERED: fentaNYL 25MCG/HR PATCH 1 PATCH PATCH.TD72 TD SCH (09:00)
--- NOTE | 2018-06-17 09:01 | PDOC ---
PULMONARY PROGRESS NOTES Subjective PT FEELS BETTER LESS SOA Vitals Vital Signs Date Time Temp Pulse Resp B/P (MAP) Pulse Ox O2 Delivery O2 Flow Rate FiO2 06/17/18 08:06 95 Nasal Cannula 2.0 06/17/18 07:36 98.3 96 20 148/90 (109) 98.3 General: Alert, No acute distress Lungs: Crackles, Other Cardiovascular: S1, S2 Abdomen: Soft Neuro Exam: Alert Extremities: No Edema Skin: Warm Labs Laboratory Tests Test 06/15/18 12:26 06/15/18 18:00 06/15/18 18:10 White Blood Count 10.1 x10^3/uL (4.0-11.0) Red Blood Count 4.02 x10^6/uL (3.50-5.40) Hemoglobin 11.4 g/dL (12.0-15.5) Hematocrit 34.9 % (36.0-47.0) Mean Corpuscular Volume 87 fL (79-100) Mean Corpuscular Hemoglobin 28 pg (25-35) Mean Corpuscular Hemoglobin Concent 33 g/dL (31-37) Red Cell Distribution Width 17.1 % (11.5-14.5) Platelet Count 353 x10^3/uL (140-400) Neutrophils (%) (Auto) 76 % (31-73) Lymphocytes (%) (Auto) 12 % (24-48) Monocytes (%) (Auto) 10 % (0-9) Eosinophils (%) (Auto) 1 % (0-3) Basophils (%) (Auto) 1 % (0-3) Neutrophils # (Auto) 7.7 x10^3uL (1.8-7.7) Lymphocytes # (Auto) 1.2 x10^3/uL (1.0-4.8) Monocytes # (Auto) 1.0 x10^3/uL (0.0-1.1) Eosinophils # (Auto) 0.1 x10^3/uL (0.0-0.7) Basophils # (Auto) 0.1 x10^3/uL (0.0-0.2) Sodium Level 137 mmol/L (136-145) Potassium Level 4.0 mmol/L (3.5-5.1) Chloride Level 100 mmol/L (98-107) Carbon Dioxide Level 30 mmol/L (21-32) Anion Gap 7 (6-14) Blood Urea Nitrogen 17 mg/dL (7-20) Creatinine 0.7 mg/dL (0.6-1.0) Estimated GFR (Cockcroft-Gault) 79.9 BUN/Creatinine Ratio 24 (6-20) Glucose Level 96 mg/dL (70-99) Calcium Level 9.4 mg/dL (8.5-10.1) Total Bilirubin 0.4 mg/dL (0.2-1.0) Aspartate Amino Transf (AST/SGOT) 21 U/L (15-37) Alanine Aminotransferase (ALT/SGPT) 16 U/L (14-59) Alkaline Phosphatase 84 U/L (46-116) Troponin I Quantitative < 0.017 ng/mL (0.000-0.055) 0.021 ng/mL (0.000-0.055) MO-Kmy-G-Type Natriuretic Peptide 215 pg/mL (0-449) Total Protein 7.8 g/dL (6.4-8.2) Albumin 2.8 g/dL (3.4-5.0) Albumin/Globulin Ratio 0.6 (1.0-1.7) Nasal Screen MRSA (PCR) Negative (Negative) Medications Active Scripts Medications Dose Route/Sig Max Daily Dose Days Date Category Ibuprofen 600 Mg Tablet 600 Mg PO PRN Q6HRS PRN 06/15/18 Reported Aspirin 325 Mg Tablet 1 Tab PO DAILY 06/15/18 Reported FENTANYL 25mcg/hr (Fentanyl) 1 Each Patch.td72 25 TD Q72HR 06/15/18 Reported Prednisone 5 Mg Tablet 5 PO DAILY 06/15/18 Reported Hydrocodone-Apap 5-325 (Hydrocodone Bit/Acetaminophen) 1 Each Tablet 1 Tab PO PRN Q4HRS PRN 5 04/03/18 Rx Impression . IMPRESSION: 1. Acute on chronic respiratory failure secondary to acute exacerbation of chronic obstructive pulmonary disease 2. Acute exacerbation of chronic obstructive pulmonary disease. 3. Acute bronchitis. 4. Protein calorie malnutrition. 5. Ex-smoker. 6. Hypertension. Plan . CONTINUE THE SAME 1. Titrate FiO2 to keep O2 saturation 92%. 2. Bronchodilator. 3. Start Solu-Medrol 40 mg IV every 12. 4. Start Rocephin. 5. Monitor respiratory status very closely. 6. She is DNR. SHRADDHA RANGEL MD Jun 17, 2018 09:01
[2018-06-17] MEDS: cefTRIAXone IV Push 1 GM VIAL. IVP SCH (09:48)
[2018-06-17] MEDS: methylPREDNISolone SOD SUCC PF 40 MG/ML VIAL. IV SCH ×2 (09:48→23:07)
[2018-06-17] MEDS: LACTOBACILLUS RHAMNOSUS GG 1 CAPSULE. PO SCH ×2 (09:49→23:07)
[2018-06-17] MEDS: FAMOTIDINE 20 MG TABLET. PO SCH (09:49)
[2018-06-17 11:35] VITALS: BP 162/90
[2018-06-17 15:29] VITALS: BP 156/82
[2018-06-17 19:30] VITALS: BP 128/74
[2018-06-17 23:35] VITALS: BP 139/83
[2018-06-18 03:40] VITALS: BP 151/93
[2018-06-18] MEDS: IPRATRPIUM/ALBUTEROL 0.5/2.5MG 3 ML NEBU. NEB SCH ×4 (07:19→19:53)
[2018-06-18 07:40] VITALS: BP 156/90
--- NOTE | 2018-06-18 07:55 | PDOC ---
Provider Note Provider Note vss, no new sxs- labs same- will go to po meds, likely prov place in am as not likely her pulm status will change much- d/w HUEY RODRIGUEZ MD Jun 18, 2018 07:55
--- NOTE | 2018-06-18 08:53 | PDOC ---
PULMONARY PROGRESS NOTES Subjective PT FEELS BETTER LESS SOA Vitals Vital Signs Date Time Temp Pulse Resp B/P (MAP) Pulse Ox O2 Delivery O2 Flow Rate FiO2 06/18/18 07:40 97.7 87 20 156/90 (112) 96 Nasal Cannula 4.0 97.7 General: Alert, No acute distress Lungs: Crackles, Other Cardiovascular: S1, S2 Abdomen: Soft Neuro Exam: Alert Extremities: No Edema Skin: Warm Medications Active Scripts Medications Dose Route/Sig Max Daily Dose Days Date Category Ibuprofen 600 Mg Tablet 600 Mg PO PRN Q6HRS PRN 06/15/18 Reported Aspirin 325 Mg Tablet 1 Tab PO DAILY 06/15/18 Reported FENTANYL 25mcg/hr (Fentanyl) 1 Each Patch.td72 25 TD Q72HR 06/15/18 Reported Prednisone 5 Mg Tablet 5 PO DAILY 06/15/18 Reported Hydrocodone-Apap 5-325 (Hydrocodone Bit/Acetaminophen) 1 Each Tablet 1 Tab PO PRN Q4HRS PRN 5 04/03/18 Rx Impression . IMPRESSION: 1. Acute on chronic respiratory failure secondary to acute exacerbation of chronic obstructive pulmonary disease 2. Acute exacerbation of chronic obstructive pulmonary disease. 3. Acute bronchitis. 4. Protein calorie malnutrition. 5. Ex-smoker. 6. Hypertension. Plan . possible transfer in am resp status compensated oral anitbx and pred upon d/c SHRADDHA RANGEL MD Jun 18, 2018 08:53
[2018-06-18] MEDS ORDERED: CEFDINIR 300 MG CAPSULE PO SCH (09:00)
[2018-06-18] MEDS: FAMOTIDINE 20 MG TABLET. PO SCH (09:14)
[2018-06-18] MEDS: LACTOBACILLUS RHAMNOSUS GG 1 CAPSULE. PO SCH ×2 (09:14→21:00)
[2018-06-18] MEDS: predniSONE 10 MG TABLET PO SCH (09:15)
[2018-06-18 11:19] VITALS: BP 139/87
[2018-06-18 15:33] VITALS: BP 145/90
--- NOTE | 2018-06-18 16:03 | NUR ---
SW following pt for anticipated dc needs. SW confirmed pt is SNU at and plan of return upon dc. SHAINA phoned and faxed clinicals to [facility] and left a voice mail to Genia to submit for insurance auth. Pt and pt's confirmed plan. SW will continue to follow.
[2018-06-18 19:25] VITALS: BP 149/91
[2018-06-18 23:25] VITALS: BP 140/86
[2018-06-19 03:25] VITALS: BP 172/92
[2018-06-19 07:23] VITALS: BP 177/93
--- NOTE | 2018-06-19 07:38 | DISCH ---
DISCHARGE DISCHARGE INFORMATION: FINAL DIAGNOSIS Problems Medical Problems: (1) COPD with acute exacerbation Status: Acute (2) Dehydration Status: Acute CONDITION ON DISCHARGE: Stable CODE STATUS: Code Status: DNR/DNI HALFWAY: SNF STAY <30 DAYS: Yes POST DISCHARGE ORDERS: ACTIVITY ORDERS: Resume previous activity, Activity as tolerated WEIGHT BEARING STATUS: As tolerated BATHING ORDERS: No Tub Bath until see Dr. CHAUHAN AFTER DISCHARGE: Regular WOUND/INCISION CARE: Ice to area for comfort FOLLOW-UP: PHYSICIAN FOLLOW-UP: prn TREATMENT/EQUIPMENT ORDERS: ADAPTIVE EQUIPMENT NEEDED: None Physical Therapy For: Evalulation/Treatment Occupational Therapy For: Evaluation/Treatment Speech Language Pathology For: Evaluation/Treatment DISCHARGE MEDICATIONS: Home Meds Active Scripts Hydrocodone Bit/Acetaminophen (HYDROCODONE-APAP 5-325 ) 1 Each Tablet, 1 TAB PO PRN Q4HRS PRN for PAIN for 5 Days, #24 TAB 0 Refills Prov:SHARON REA MD 04/03/18 Reported Medications Ibuprofen (IBUPROFEN) 600 Mg Tablet, 600 MG PO PRN Q6HRS PRN for INFLAMMATION, TAB 06/15/18 Aspirin (ASPIRIN) 325 Mg Tablet, 1 TAB PO DAILY for stroke prevention, #30 TAB 5 Refills 06/15/18 Fentanyl (FENTANYL 25mcg/hr) 1 Each Patch.td72, 25 TD Q72hr for pain 06/15/18 Prednisone (PREDNISONE) 5 Mg Tablet, 5 PO DAILY for COPD 06/15/18 Discontinued Reported Medications Cyclobenzaprine Hcl (CYCLOBENZAPRINE HCL) 10 Mg Tablet, 10 MG PO TID, TAB 04/07/14 Albuterol Sulfate (PROVENTIL HFA INHALER) 6.7 Gm Hfa.aer.ad, 1 PUFF IH QIDPRN PRN for SEE COMMENTS, INHALER 0 Refills 04/07/14 HUEY RODRIGUEZ MD Jun 19, 2018 07:38
--- NOTE | 2018-06-19 07:41 | PDOC ---
Provider Note Provider Note [id number] HUEY RODRIGUEZ MD Jun 19, 2018 07:41
[2018-06-19] MEDS: IPRATRPIUM/ALBUTEROL 0.5/2.5MG 3 ML NEBU. NEB SCH (07:55)
[2018-06-19] MEDS: LACTOBACILLUS RHAMNOSUS GG 1 CAPSULE. PO SCH (08:28)
[2018-06-19] MEDS: predniSONE 10 MG TABLET PO SCH (08:28)
--- NOTE | 2018-06-19 08:40 | DS ---
DATE OF DISCHARGE: 06/19/2018 HOSPITAL SUMMARY: An 82-year-old white female with oxygen-dependent COPD and moderately severe malnutrition, came in with increased shortness of breath, brought from [facility]. CBC, chemistry profile and cardiac enzymes were unremarkable. Chest x-ray showed no acute change with advanced COPD present and no cultures were obtained. She was given IV steroids and Rocephin, but no secondary infection developed. She was afebrile and generally about her usual self to the hospital stay. She is back on p.o. meds now and is able to be discharged back to [facility] for continued comfort care. FINAL DIAGNOSES: 1. Acute exacerbation of chronic obstructive pulmonary disease. 2. Moderately severe malnutrition and cachexia. OPERATIONS, PROCEDURES, COMPLICATIONS: None. CONSULTATIONS: Dr. Montes's group. DISPOSITION: Home meds remain the same. Low dose prednisone, DuoNeb treatments, fentanyl patch for chronic back pain from previous compression fractures and supportive care. She remains a DNR patient. HUEY RODRIGUEZ MD DR: HAVEN/susan JOB#: [id number] / [id number]
--- NOTE | 2018-06-19 09:00 | NUR ---
Insurance auth for SNU pending.
--- NOTE | 2018-06-19 09:30 | PDOC ---
PULMONARY PROGRESS NOTES Subjective PT FEELS BETTER LESS SOA Vitals Vital Signs Date Time Temp Pulse Resp B/P (MAP) Pulse Ox O2 Delivery O2 Flow Rate FiO2 06/19/18 07:56 96 Nasal Cannula 3.0 06/19/18 07:23 97.7 95 20 177/93 (121) 97.7 General: Alert, No acute distress Lungs: Crackles, Other Cardiovascular: S1, S2 Abdomen: Soft Neuro Exam: Alert Extremities: No Edema Skin: Warm Medications Active Scripts Medications Dose Route/Sig Max Daily Dose Days Date Category Ibuprofen 600 Mg Tablet 600 Mg PO PRN Q6HRS PRN 06/15/18 Reported Aspirin 325 Mg Tablet 1 Tab PO DAILY 06/15/18 Reported FENTANYL 25mcg/hr (Fentanyl) 1 Each Patch.td72 25 TD Q72HR 06/15/18 Reported Prednisone 5 Mg Tablet 5 PO DAILY 06/15/18 Reported Hydrocodone-Apap 5-325 (Hydrocodone Bit/Acetaminophen) 1 Each Tablet 1 Tab PO PRN Q4HRS PRN 5 04/03/18 Rx Impression . IMPRESSION: 1. Acute on chronic respiratory failure secondary to acute exacerbation of chronic obstructive pulmonary disease 2. Acute exacerbation of chronic obstructive pulmonary disease. 3. Acute bronchitis. 4. Protein calorie malnutrition. 5. Ex-smoker. 6. Hypertension. Plan . D/C FOLLOW UP IN OFFICE D/W INCREASE PROTEIN INTAKE SHRADDHA RANGEL MD Jun 19, 2018 09:30
[2018-06-19 10:42] VITALS: BP 127/90
--- NOTE | 2018-06-19 10:50 | NUR ---
SHAINA following pt. Insurance has approved SNU. SHAINA phoned and faxed orders to [facility]. Pt will transport to [facility] via central transport at 1115. Pt's choice and rights forms verbally consented by pt and copies placed on chart. Pt's in room and aware of plans. Packet on chart. GARY EAGLE.
--- NOTE | 2018-06-19 11:46 | NUR ---
Discharge Note: DEVIKA NOLASCO [facility] Discharge instructions and discharge home medications reviewed with Patient and a copy given. All questions have been answered and understanding verbalized. The following instructions and handouts were given: Worsening symptoms, follow up information, and medications sent to [facility]. Discontinued lines and drains: IV discontinued, skin intact. Patient discharged to [facility] via our transportation, accompanied by
[2018-06-20] MEDS ORDERED: fentaNYL 25MCG/HR PATCH 1 PATCH PATCH.TD72 TD SCH (09:00)
== END 2018-06-19 11:50 | DRG 189 ==
LOC: ER 11:20 → 6 SOUTH 14:30
PROVIDERS: ADMIT Family Medicine; ATTEND Family Medicine
DX: J96.20 Acute and chronic respiratory failure, unspecified whether with hypoxia or hypercapnia (principal); E43 Unspecified severe protein-calorie malnutrition; J44.1 Chronic obstructive pulmonary disease with (acute) exacerbation; R64 Cachexia; Z68.1 Body mass index [BMI] 19.9 or less, adult; J44.0 Chronic obstructive pulmonary disease with (acute) lower respiratory infection; G89.29 Other chronic pain; M54.9 Dorsalgia, unspecified; E86.0 Dehydration; I10 Essential (primary) hypertension; J20.9 Acute bronchitis, unspecified; Z66 Do not resuscitate; M19.90 Unspecified osteoarthritis, unspecified site; M81.0 Age-related osteoporosis without current pathological fracture; Z82.49 Family history of ischemic heart disease and other diseases of the circulatory system; Z87.891 Personal history of nicotine dependence; Z99.81 Dependence on supplemental oxygen
CPT/HCPCS: 36415; 71045; 80053; 83880; 84484; 85025; 87641; 93005; 94640; 94760; 96374; 96375; J0696; J2270; J2405; J2920; J2930; J3010; J7030; J7512; J7620; 97110; 97535; 99285-25; G0378